=== PATIENT | female | born 1950 ===

== ENCOUNTER 2018-05-19 10:49 | Outpatient (CLI) | payer OTHER ==
[~2018-05-19] VITALS: Ht 162.6 cm; Wt 81.6 kg
== END 2018-05-19 11:15 | disposition home or self-care (01) ==
LOC: OFIC 805 10:49
DX: R05 Cough (principal); R49.0 Dysphonia; R49.1 Aphonia; J38.3 Other diseases of vocal cords

== ENCOUNTER 2018-06-13 07:09 | Day surgery (SDC) | payer OTHER ==
[~2018-06-13 07:09] MED LIST: PRILOSEC PO; ZOCOR20 MG PO
== END 2018-06-13 13:40 | disposition home or self-care (01) ==
LOC: CIR.AMB 07:09
DX: J38.1 Polyp of vocal cord and larynx (principal)

== ENCOUNTER 2018-06-18 09:42 | Outpatient (CLI) | payer OTHER ==
[~2018-06-18] VITALS: Ht 152.4 cm; Wt 81.6 kg
== END 2018-06-18 10:00 | disposition home or self-care (01) ==
LOC: OFIC 805 09:42
DX: R49.0 Dysphonia (principal); J38.2 Nodules of vocal cords

== ENCOUNTER 2018-07-11 12:50 | Outpatient (CLI) | payer OTHER ==
[~2018-07-11] VITALS: Ht 152.4 cm; Wt 79.4 kg
== END 2018-07-11 13:10 | disposition home or self-care (01) ==
LOC: OFIC 805 12:50
DX: J38.2 Nodules of vocal cords (principal)